=== PATIENT | female | born 1995 | race Caucasian/White ===

== ENCOUNTER 2017-11-07 12:10 | Outpatient (CLI) ==
[2016-08-23 11:57] VITALS: BMI 32.2
== END 2017-11-07 12:11 | disposition home or self-care (01) ==
LOC: LAB 12:10
PROVIDERS: ATTEND Nurse Practitioner Family
DX: R74.8 Abnormal levels of other serum enzymes (principal); K80.20 Calculus of gallbladder without cholecystitis without obstruction; R10.84 Generalized abdominal pain
CPT/HCPCS: 36415; 80074; 82150; 83690; 86677

== ENCOUNTER 2017-12-06 21:09 | Emergency (ER) ==
[2017-12-06 21:19] VITALS: BP 122/79; TEMP 98.5; BMI 34.5
--- NOTE | 2017-12-06 22:02 | ED.PDOC ---
General ED Provider: Dr. TANNER RODRIGUEZ Chief Complaint: Abdominal Pain Stated Complaint: Right upper abdominal pain goes around to the back, nausea without vomiting. Diagnosis at [facility] on 11/03/17 with gallstones. States that she saw Dr. Finnegan around the 7th at [place] and was told was mostly reflux. Has had problems on and off for 4 days. Time Seen by Physician: 21:59 Mode of Arrival: Walk-In Information Source: Patient Exam Limitations: No limitations Primary Care Provider: KALANI TERESA Nursing and Triage Documentation Reviewed and Agree: Yes Reviewed sepsis parameters & appropriate labs ordered?: No System Inflammatory Response Syndrome: Not Applicable Sepsis Protocol: For patient's 13 years and over: Temp is 96.8 and below OR 101 and greater Pulse >90 BPM Resp >20/minute Acutely Altered Mental Status Are patient's symptoms suggestive of a new infection, such as: -Pneumonia -Skin, Soft Tissue -Endocarditis -UTI -Bone, Joint Infection -Implantable Device -Acute Abdominal Infection -Wound Infection -Meningitis -Blood Stream Catheter Infection -Unknown System Inflammatory Response Syndrome: Not Applicable Review of Systems - Review Of Systems Constitutional: Reports: No symptoms GI: Reports: Abdominal pain, Nausea. 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[ End ] - Surgical History General Surgical History: Reports: , Other (TUBES IN EAR) - Family History Family History: Reports: None - Social History Smoking Status: Never smoker Hx Substance Use: No Alcohol Screening: None - Immunizations Tetanus Shot up to Date: No (UNKNOWN) Physical Exam - Physical Exam Appearance: Ill-appearing Ill-appearing: Severe Pain Distress: Moderate Eyes: ZAINAB Neck: Supple Respiratory: Airway patent, Breath sounds clear, Breath sounds equal, Respirations nonlabored Cardiovascular: RRR GI/: Tender (right upper quadrant ) Musculoskeletal: Normal strength Skin: Warm Neurological: Sensation intact, Motor intact, Reflexes intact, Cranial nerves intact, Alert, Oriented Psychiatric: Anxious Critical Care Note - Critical Care Note Total Time (mins): 0 Course - Course Hematology/Chemistry: 12/06/17 22:25 12/06/17 22:25 Orders, Labs, Meds: Lab Review 12/06/17 12/06/17 12/06/17 22:25 22:25 22:35 WBC 13.51 H RBC 4.14 L Hgb 12.7 Hct 36.6 L MCV 88.4 MCH 30.7 MCHC 34.7 RDW Coeff of Garret 13.8 Plt Count 323 Immature Gran % (Auto) 0.2 Neut % (Auto) 51.7 Lymph % (Auto) 38.0 [place] % (Auto) 7.9 Eos % (Auto) 1.9 Baso % (Auto) 0.3 Immature Gran # (Auto) 0.0 Neut # 7.0 H Lymph # 5.1 H [place] # 1.1 Eos # 0.3 Baso # 0.0 Sodium 137 Potassium 4.2 Chloride 105 Carbon Dioxide 20 L Anion Gap 16.2 BUN 17 Creatinine 0.70 Estimated GFR (MDRD) 104.00 BUN/Creatinine Ratio 24.28 Glucose 95 Calcium 10.2 Total Bilirubin 0.4 AST 26 ALT 42 Alkaline Phosphatase 115 H Total Protein 7.4 Albumin 3.8 Globulin 3.6 Albumin/Globulin Ratio 1.06 Amylase 32 Lipase 25 Urine Color Yellow Urine Clarity Clear Urine pH 7.0 Ur Specific [place] 1.020 Urine Protein Negative Urine Glucose (UA) Negative Urine Ketones Negative Urine Blood Negative Urine Nitrite Negative Urine Bilirubin Negative Urine Urobilinogen 0.2 Ur Leukocyte Esterase Negative Orders Category Date Time Status AMYLASE Stat LAB 12/06/17 22:25 Completed CBC W/ AUTO DIFF Stat LAB 12/06/17 22:25 Completed COMPREHENSIVE METABOLIC PANEL Stat LAB 12/06/17 22:25 Completed LIPASE Stat LAB 12/06/17 22:25 Completed URINALYSIS C & S IF INDICATED Stat LAB 12/06/17 22:35 Completed Meperidine HCl/Pf [Demerol 50 mg/ml Vial] MEDS 12/06/17 22:21 Discontinued 50 mg IM ONCE STA Promethazine HCl [Phenergan 25 mg/ml Vial] MEDS 12/06/17 22:21 Discontinued 25 mg IM ONCE STA Medications Discontinued Medications Generic Name Dose Route Start Last Admin Trade Name Freq PRN Reason Stop Dose Admin Meperidine HCl 50 mg 12/06/17 22:21 12/06/17 22:44 Demerol 50 Mg/Ml Vial IM 12/06/17 22:22 50 mg ONCE STA Administration Promethazine HCl 25 mg 12/06/17 22:21 12/06/17 22:43 Phenergan 25 Mg/Ml Vial IM 12/06/17 22:22 25 mg ONCE STA Administration Vital Signs: Temp Pulse Resp BP Pulse Ox 12/06/17 21:11 98.5 F 97 H 16 122/79 99 Departure - Departure Time of Disposition: 23:36 Disposition: HOME SELF-CARE Discharge Problem: Abdominal pain, Cholecystitis, chronic Instructions: Cholecystitis (ED) Condition: Fair Pt referred to PMD for follow-up: Yes IPMP verified?: No Additional Instructions: Follow up with PCP and your surgeon. Take medications as prescribed Follow a Low fat diet Prescriptions: Ondansetron HCl [Zofran Tab] 4 mg PO Q8H PRN #14 tablet PRN Reason: Nausea / Vomiting Tramadol HCl [Ultram] 50 mg PO Q6H PRN #25 tablet PRN Reason: Severe Pain Allergies/Adverse Reactions: Allergies cefprozil [From Cefzil] Allergy (Intermediate, Verified 08/23/16 11:57) Hives oxycodone [Oxycodone] Allergy (Intermediate, Verified 08/23/16 11:57) Hives Home Medications: Ambulatory Orders Ondansetron HCl [Zofran Tab] 4 mg PO Q8H PRN #14 tablet 12/06/17 Ranitidine HCl [Zantac] 150 mg PO BIDAC 12/06/17 Tramadol HCl [Ultram] 50 mg PO Q6H PRN #25 tablet 12/06/17 Disposition Discussed With: Patient, Family
[2017-12-06] MEDS ORDERED: DEMEROL 50 MG/ML VIAL IM STA (22:21)
[2017-12-06] MEDS ORDERED: PHENERGAN 25 MG/ML VIAL IM STA (22:21)
== END 2017-12-06 23:49 | disposition home or self-care (01) ==
LOC: ED 21:09
DX: K81.1 Chronic cholecystitis (principal)
CPT/HCPCS: 36415; 80053; 81001; 82150; 83690; 85025; 96372; 99283

== ENCOUNTER 2017-12-24 09:45 | Outpatient (CLI) ==
--- NOTE | 2017-12-25 16:26 | NM ---
EXAM: Hepatobiliary scan HISTORY: Cholelithiasis without cholecystitis. COMPARISON: None of this type. PROCEDURE: The patient was injected with 5.2 mCi of 99mTc mebrofenin intravenously. Images of the ab domen were obtained at 5 min intervals for 30 minutes. No additional images were obtained at 45 neha alyssia, 1 hour, 90 minutes, 2 hours, 3 hours and 3.5 hours. FINDINGS: Sequential images demonstrate normal uptake of tracer into the liver. Activity is seen in the intrahepatic biliary ducts at about 15 minutes. Activity first appears in the small bowel at 25 minutes.No activity is seen in the gallbladder out to 3.5 hours. IMPRESSION: 1.The examination demonstrates normal uptake and clearance of activity from the liver. 2.There is prompt appearance of activity in the common bile duct and subsequently duodenum and small bowel. 3.No activity is seen in the gallbladder out to 3.5 hours. This finding is typically associated with cystic duct obstruction and in the appropriate clinical setting cholecystitis.
== END 2017-12-24 09:46 | disposition home or self-care (01) ==
LOC: RAD 09:45
PROVIDERS: ATTEND Nurse Practitioner Family
DX: K80.20 Calculus of gallbladder without cholecystitis without obstruction (principal); R10.13 Epigastric pain
CPT/HCPCS: 36415; 80053; 82150; 83690; 85025

== ENCOUNTER 2018-02-02 21:35 | Emergency (ER) | payer OTHER ==
[2018-02-02 21:46] VITALS: BP 122/77; TEMP 99.4; BMI 35.8
[2018-02-02] MEDS ORDERED: SOLU-MEDROL 125 MG IM STA (21:55)
[2018-02-02] MEDS ORDERED: PEPCID PO STA (21:55)
[2018-02-02] MEDS ORDERED: CLARITIN PO STA (21:56)
--- NOTE | 2018-02-02 22:12 | ED.PDOC ---
General ED Provider: Dr. TANNER RODRIGUEZ Chief Complaint: Bite Stated Complaint: Patient is a 22 year old female who states that while in [place] yesterday felt a sting on the left forearm and dorsum of hand. Since then it has been swelling and has formed welps. It is itching some. Denies any difficulty breathing or chest pain and she has not had any benadryl. Time Seen by Physician: 21:40 Mode of Arrival: Walk-In Information Source: Patient Exam Limitations: No limitations Primary Care Provider: [facility] Nursing and Triage Documentation Reviewed and Agree: Yes Reviewed sepsis parameters & appropriate labs ordered?: No System Inflammatory Response Syndrome: Not Applicable Sepsis Protocol: For patient's 13 years and over: Temp is 96.8 and below OR 101 and greater Pulse >90 BPM Resp >20/minute Acutely Altered Mental Status Are patient's symptoms suggestive of a new infection, such as: -Pneumonia -Skin, Soft Tissue -Endocarditis -UTI -Bone, Joint Infection -Implantable Device -Acute Abdominal Infection -Wound Infection -Meningitis -Blood Stream Catheter Infection -Unknown System Inflammatory Response Syndrome: Not Applicable Skin Complaint Exam - Skin Rash/Itching Complaint/Exam Onset/Duration: 1 day Symptoms Are: Still present Initial Severity: Mild Current Severity: Moderate Location: Left forearm and hand Potential Exposures: Reports: Insect bite Prior Treatment: none Aggravating: Reports: Heat, Clothing Alleviating: Reports: Cool compresses Associated Signs and Symptoms: Denies: Difficulty breathing, Fever, Chills Skin Findings: Present: Urticaria Body Picture: 1 - wheals with some surrouding erythema. 2 - 8x 8 cm area of mild erythema that is raised and itchy. Differential Diagnoses: Allergic Reaction, Urticaria Review of Systems - Review Of Systems Constitutional: Reports: No symptoms Eyes: Reports: No symptoms Ears, Nose, Mouth, Throat: Reports: No symptoms Respiratory: Reports: No symptoms Cardiac: Reports: No symptoms GI: Reports: No symptoms : Reports: No symptoms Musculoskeletal: Reports: No symptoms Skin: Reports: Rash Neurological: Reports: Anxiety Endocrine: Reports: No symptoms Hematologic/Lymphatic: Reports: No symptoms All Other Systems: Reviewed and Negative Past Medical History - Past Medical History Previously Healthy: No Endocrine: Reports: None Cardiovascular: Reports: Other (Palpitations) Respiratory: Reports: None Hematological: Reports: Anemia Gastrointestinal: Reports: None Genitourinary: Reports: None Neuro/Psych: Reports: None Musculoskeletal: Reports: None Cancer: Reports: None Last Menstrual Period: 01/09/18 Other Pertinent Past Medical History: 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[ End ] - Surgical History General Surgical History: Reports: , Other (TUBES IN EAR, D and C ) - Family History Family History: Reports: None - Social History Smoking Status: Never smoker Hx Substance Use: No Alcohol Screening: None - Immunizations Tetanus Shot up to Date: No (unsure) Physical Exam - Physical Exam Appearance: Ill-appearing Ill-appearing: Mild Pain Distress: Mild Neck: Supple (no stridor) Respiratory: Airway patent, Breath sounds clear, Breath sounds equal, Respirations nonlabored Cardiovascular: RRR, Pulses normal, No rub, No murmur Skin: Warm, Dry Neurological: Sensation intact, Motor intact, Cranial nerves intact, Alert, Oriented Psychiatric: Anxious Critical Care Note - Critical Care Note Total Time (mins): 0 Course - Course Orders, Labs, Meds: Orders Category Date Time Status Famotidine [Pepcid] MEDS 02/02/18 21:55 Discontinued 20 mg PO ONCE STA Loratadine [Claritin] MEDS 02/02/18 21:56 Discontinued 10 mg PO ONCE STA Methylprednisolone Sod Succ/Pf [Solu-Medrol 125 mg] MEDS 02/02/18 21:55 Discontinued 125 mg IM ONCE STA Medications Discontinued Medications Generic Name Dose Route Start Last Admin Trade Name Freq PRN Reason Stop Dose Admin Famotidine 20 mg 02/02/18 21:55 02/02/18 22:04 Pepcid PO 02/02/18 21:56 20 mg ONCE STA Administration Loratadine 10 mg 02/02/18 21:56 02/02/18 22:04 Claritin PO 02/02/18 21:57 10 mg ONCE STA Administration Methylprednisolone Sodium Succinate 125 mg 02/02/18 21:55 02/02/18 22:04 Solu-Medrol 125 Mg IM 02/02/18 21:56 125 mg ONCE STA Administration Vital Signs: Temp Pulse Resp BP Pulse Ox 02/02/18 21:35 99.4 F 88 20 122/77 98 Departure - Departure Time of Disposition: 22:20 Disposition: HOME SELF-CARE Discharge Problem: Insect bite (nonvenomous) of left forearm, initial encounter, Urticaria, acute Instructions: Urticaria (ED), Insect Bite or Sting (ED) Condition: Stable Pt referred to PMD for follow-up: Yes IPMP verified?: Yes Additional Instructions: Take Over the counter Benadryl as needed for swelling and itching. Follow up with PCP in 2-3 days Return if worse. Prescriptions: Prednisone 20 mg PO DAILYWM #5 tablet Allergies/Adverse Reactions: Allergies cefprozil [From Cefzil] Allergy (Intermediate, Verified 02/02/18 21:46) Hives oxycodone [Oxycodone] Allergy (Intermediate, Verified 02/02/18 21:46) Hives Home Medications: Ambulatory Orders Ranitidine HCl [Zantac] 150 mg PO BIDAC 12/06/17 Prednisone 20 mg PO DAILYWM #5 tablet 02/02/18 Disposition Discussed With: Patient
== END 2018-02-02 22:40 | disposition home or self-care (01) ==
LOC: ED 21:35
DX: S50.862A Insect bite (nonvenomous) of left forearm, initial encounter (principal); L50.9 Urticaria, unspecified; W57.XXXA Bitten or stung by nonvenomous insect and other nonvenomous arthropods, initial encounter
CPT/HCPCS: 96372; 99282